=== PATIENT | female | born 1950 | race Caucasian/White ===

== ENCOUNTER 2017-03-17 08:06 | Inpatient (IN) ==
--- NOTE | 2017-03-16 19:32 | Discharge Summary ---
<Andreia Jarquin - Last Filed: 03/16/17 19:30> Date of Encounter: 03/16/17 - Discharge Diagnosis (1) Rotator cuff arthropathy Priority: Primary Status: Acute Qualifiers: Laterality: unspecified laterality Qualified Code(s): M12.819 - Other specific arthropathies, not elsewhere classified, unspecified shoulder - Discharge Medications Home Medications: OxyCODONE Immed Rel [Roxicodone 5 MG] 5 - 10 mg PO Q6HR PRN #40 tablet 03/16/17 [Rx] Atorvastatin Calcium [Lipitor] 20 mg PO DAILY 03/17/17 [History] BuPROPion [Wellbutrin] 100 mg PO TID 03/17/17 [History] DiphenhydraMINE [Benadryl] 25 mg PO HS PRN 03/17/17 [History] Enoxaparin [Lovenox] 30 mg SQ DAILY 03/17/17 [History] Gabapentin [Neurontin] 300 mg PO TID 03/17/17 [History] Insulin ASPART [Novolog] 0 unit SQ TID PRN 03/17/17 [History] Insulin DETEMIR [Levemir] 30 unit SQ HS 03/17/17 [History] Insulin DETEMIR [Levemir] 45 unit SQ QAM 03/17/17 [History] Losartan Potassium [Cozaar] 100 mg PO DAILY 03/17/17 [History] Metformin HCl [Glucophage] 1,000 mg PO BID 03/17/17 [History] Metoprolol [Lopressor] 50 mg PO BID 03/17/17 [History] Warfarin [Coumadin] 5 mg PO SUTUWETHSA 03/17/17 [History] Warfarin [Coumadin] 7.5 mg PO MOFR 03/17/17 [History] amLODIPine [Norvasc] 5 mg PO DAILY 03/17/17 [History] Allergies/Adverse Reactions: Allergies Sulfa (Sulfonamide Antibiotics) Adverse Reaction (Verified 03/17/17 08:46) See Comments Primary care physician: Harrison echeverria - Patient Status Disposition: Home, Self-Care Condition: Good - Discharge Instructions Follow Up With: Harrison echeverria [Other] - Hospital Course Hospital course: Ms. Jones is a 66 year old female - Time Spent with Patient Total time spent providing and/or coordinating discharge services: <Vito Almaguer - Last Filed: 03/18/17 06:19> Date of Encounter: 03/18/17 Time of Encounter: 06:18 - Discharge Diagnosis (1) Rotator cuff arthropathy Priority: Primary Status: Acute Qualifiers: Laterality: left Qualified Code(s): M12.812 - Other specific arthropathies , not elsewhere classified, left shoulder (2) Hypertension Priority: Secondary Status: Chronic Qualifiers: Hypertension type: unspecified secondary hypertension Qualified Code(s): I15.9 - Secondary hypertension, unspecified; I15 - Secondary hypertension (3) Hyperlipidemia Priority: Secondary Status: Chronic Qualifiers: Hyperlipidemia type: unspecified Qualified Code(s): E78.5 - Hyperlipidemia , unspecified (4) Diabetes type 2, controlled Priority: Secondary Status: Chronic Qualifiers: Diabetes mellitus complication status: without complication Diabetes mellitus terminal gauger insulin use: unspecified intermediate insulin use status Qualified Code(s): E11.9 - Type 2 diabetes mellitus without complications (5) Morbid obesity with BMI of 40.0-44.9, adult Priority: Secondary Status: Chronic (6) Vasovagal episode Priority: Primary Status: Acute Primary care physician: Harrison echeverria - Patient Status Functional capacity at discharge: independent ambulation Overall status at discharge: patient is progressing back to baseline - Hospital Course Hospital course: Ms. Jones is a 66 year old female The patient had an uneventful postoperative course. They received antibiotics and physical therapy and were discharged in stable condition. There will follow -up in the office in 2 weeks. She did have a vasovagal episode after surgery rapid response was called patient responds appropriately. Patient doing well this morning without complaints. - Time Spent with Patient Total time spent providing and/or coordinating discharge services:
[2017-03-17] MEDS ORDERED: *HR* Succinylcholine 200 MG/10 ML VIAL IVP ONE (08:10)
[2017-03-17] MEDS ORDERED: Ondansetron 4 MG/2 ML VIAL ONE (08:10)
[2017-03-17] MEDS ORDERED: *HR* FentaNYL (PF) 100 MCG/2 ML VIAL ONE (08:10)
[2017-03-17] MEDS ORDERED: *HR* Midazolam HCl 2 MG/2 ML VIAL ONE (08:10)
[2017-03-17] MEDS ORDERED: *HR* Propofol 200 MG/20 ML VIAL IVP ONE (08:10)
[2017-03-17] MEDS ORDERED: Lidocaine -MPF 2% 2 ML VIAL ONE (08:10)
[2017-03-17] MEDS ORDERED: Ringers Solution, Lactated 1,000 ML IVC SCH ×2 (08:30)
[2017-03-17] MEDS ORDERED: Famotidine 20 MG/2 ML VIAL IVP ONE (08:30)
[2017-03-17] MEDS ORDERED: CeFAZolin Pre 2,000 MG/100 ML 2,000 MG/100 ML BAG IVPB ONE (08:30)
[2017-03-17] MEDS ORDERED: Gabapentin 300 MG CAPSULE PO ONE (08:34)
--- NOTE | 2017-03-17 08:55 | Anesthesia Evaluation PreOp ---
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 HX Other Medical History: Diabetes Type II, Other (Morbid Obesity) Anesthesia History: No Prior Anesthetic Complications : No Alcohol Use: none Drug use: none Medications and Allergies OxyCODONE Immed Rel [Roxicodone 5 MG] 5 - 10 mg PO Q6HR PRN #40 tablet 03/16/17 [Rx] Atorvastatin Calcium [Lipitor] 20 mg PO DAILY 03/17/17 [History] BuPROPion [Wellbutrin] 100 mg PO TID 03/17/17 [History] DiphenhydraMINE [Benadryl] 25 mg PO HS PRN 03/17/17 [History] Enoxaparin [Lovenox] 30 mg SQ DAILY 03/17/17 [History] Gabapentin [Neurontin] 300 mg PO TID 03/17/17 [History] Insulin ASPART [Novolog] 0 unit SQ TID PRN 03/17/17 [History] Insulin DETEMIR [Levemir] 30 unit SQ HS 03/17/17 [History] Insulin DETEMIR [Levemir] 45 unit SQ QAM 03/17/17 [History] Losartan Potassium [Cozaar] 100 mg PO DAILY 03/17/17 [History] Metformin HCl [Glucophage] 1,000 mg PO BID 03/17/17 [History] Metoprolol [Lopressor] 50 mg PO BID 03/17/17 [History] Warfarin [Coumadin] 5 mg PO SUTUWETHSA 03/17/17 [History] Warfarin [Coumadin] 7.5 mg PO MOFR 03/17/17 [History] amLODIPine [Norvasc] 5 mg PO DAILY 03/17/17 [History] Allergies Sulfa (Sulfonamide Antibiotics) Adverse Reaction (Verified 03/17/17 08:46) See Comments - Meds/Allergy Pre-op Review Medications Reviewed: Yes Allergies Reviewed: Yes Beta Blockers on Current Med List: Yes (Took Metoprolol today 0600) Anesthesia Results - Labs Laboratory Tests 03/11/17 03/11/17 13:59 13:59 Hgb 11.3 L Hct 35.1 L Plt Count 269 Sodium 141 Potassium 4.7 H BUN 22 H Creatinine 0.97 - Imaging EKG: report reviewed (SR) Additional studies: Gated EF 72% from stress test Anesthesia Exam O2 Sat Height 1.68 m Height 1.68 m Height 1.68 m Weight 114.759 kg Weight 114.759 kg Weight 114.759 kg O2 Sat by Pulse Oximetry 95 O2 Sat by Pulse Oximetry 95 Vital Signs Temp Pulse Resp BP Pulse Ox 98.2 F 58 18 147/73 95 03/17/17 08:33 03/17/17 08:33 03/17/17 08:33 03/17/17 08:33 03/17/17 08:33 Height: 5'6 Weight: 253 lbs NPO (# of Hours): MN Pain Scale: 0 - HEENT Pupil (Motor): Pupils equal, EOMI Mallampati: III Denture Type: Upper: Complete Oral Opening: Less than or equal to 3 - FIELD LABORER LOC: Oriented FIELD LABORER Motor: Normal RUE, Normal LUE, Normal RLE, Normal LLE, Normal Face FIELD LABORER Sensory: Normal: RUE, LUE, RLE, LLE, Face - Cardiac Rhythm: Regular Murmur: None JVD: No Carotid Bruit: No - Pulmonary Breath Sounds: bilateral Clear Respiratory Effort: Symmetrical Anesthesia Assess/Plan ASA Score: 3 (MO HTN) Anesthetic Plan: General, Regional Monitoring Plan: Standard Monitors Recovery Plan: PACU (Discussed GA and RA, agrees to proceed)
[2017-03-17] MEDS ORDERED: *HR* HYDROmorphone (PF) 1 MG/ML SYRINGE IVP PRN ×2 (09:00→12:44)
--- NOTE | 2017-03-17 09:01 | History & Physical Report ---
Date of Encounter: 03/17/17 Time of Encounter: 09:01 24 Hour HP Update - Instructions Instructions: If the History and Physical is less than 30 days old and was completed prior to A.M. admission and or procedure and has NOT been updated on calendar day of procedure please complete this update prior to performing procedure. - Update Patient reports changes in Medical Condition: No Changes in examination, assessment, or condition: No Changes in Medication: No Preop tests/diagnostics Reviewed: Yes Surgery Remains Indicated: Yes Consent for Planned Operative Procedure(s) Verified: Yes - Pre-Operative Checklist Preoperative Checklist Indicated: No Prophylactic Antibiotic Ordered: Yes Beta Kalia Taken Yesterday (Day Prior to Surgery): No
[2017-03-17] MEDS ORDERED: Tetracaine/PF 20 MG/2 ML AMPUL ONE (09:06)
[2017-03-17] MEDS ORDERED: ROPIVACAINE HCL/PF 0.5% 30 ML VIAL ONE (09:06)
[2017-03-17] MEDS ORDERED: Bupivacaine/Clonidine Syringe 1 EACH SYRINGE ONE (09:07)
--- NOTE | 2017-03-17 10:02 | Anesthesia Procedures ---
Date of Encounter: 03/17/17 Time of Encounter: :40 Procedures: Anesthesia - Nerve Block Procedure Date: 03/17/17 Time: :40 Checklist: Correct Patient Identifier Correct side: Left Blood Thinner: No Monitor Applied: EKG, BP, Pulse Oximetry Supplemental Oxygen via Nasal Cannula (L/min): 2 Sedation: Versed (mg): 2 Sedation: Fentanyl (mcg): 1 Indication: Post Op Analgesia Pre-op Neuro Deficits: No Block Type: Supraclavicular, Other (superficial cervical plexus, ICB) Catheter placed: No Sterile Technique: Yes Ultrasound used: Yes Anatomy identified: Yes Visual spread of Local: Yes Neuro Stimulation: No Blood on Needle Aspiration: No Smooth Injection of Local: Yes Pain with Injection of Local: No Prep: Chlorhexadine Needle: 22 x 50 mm Stimuplex Local: 0.25% Bupivicaine w/Clonidine 20 mcg/cc (15 ml for SCP and 15 for ICB), Ropivacaine (0.5 30 ml wit h8 of decadron) Volume (cc): 30 Number of Attempts: 1 Complications: None/effective block Vitals: VSS
[2017-03-17] MEDS ORDERED: EPHEDrine 50 MG/ML VIAL ONE (10:13)
--- NOTE | 2017-03-17 10:51 | Orthopedic Operative Note ---
Date of procedure: 03/17/17 Pre-op diagnosis: Left shoulder cuff tear arthropathy Post-op diagnosis: same Procedure: Procedure: Left Total Shoulder Replacment Reverse, Estimated blood loss: 100 cc Hardware: Metal and polyethylene replacement: Arthrex medium glenoid baseplate , 2 4.5 screws. 1 6.5 screw, 42+4 glenosphere, 11 humeral stem, poly insert 3 Exam Under anesthesia: Full motion and no instability Procedural Notes: Grade 3 arthritic changes humeral head irreparable tear supraspinatus tendon Operative procedure: The patient was brought to the operating room and placed on the operating room table. After general anesthesia was administered the operative shoulder was examined. Findings were noted. The patient was placed in the modified beachchair position. All pressure points were padded appropriately. And the head was stabilized in the neutral position. The operative extremity was prepped and draped in the sterile surgical fashion. The patient received IV antibiotics prior to skin incision. A standard deltopectoral approach was made to the operative shoulder. Incision was made to the skin and subcutaneous tissue,hemo stasis was obtained with Bovie cautery. Using careful blunt dissection the cephalic vein was identified and mobilized medially. The deltopectoral interval was developed and the clavipectoral fascia was incised. The subscap was released off the lesser tuberosity and tagged with #2 FiberWire suture subscap was irreparable. The humerus was dislocated patient noted to have irreparable tear supraspinatus tendon, and the humeral cut was made along the anatomic neck. Patient noted to have grade 3 arthritic changes humeral head. Anterior and posterior Bankart retractors were placed to expose the glenoid. The glenoid guide was seated and the centering hole was made. It was reamed with the appropriate reamer. The medium baseplate was seated and secured with (2) 4.5 screws and one 6.5 screw. The baseplate was irrigated and dried and the 42+4 Glenosphere was seated and secured with the Gomez taper. The Gomez taper was tested and found to be secure the humerus was redislocated and prepared with the diaphyseal reamers, followed by a broaching process up to the appropriate size 11 in the patient's anatomic version. The metaphyseal reamer was then utilized. Trial reduction found the shoulder to be relocatable. Trial components were removed. The appropriate 11 stem was impacted in place in the patient's anatomic version. Trial reduction found the shoulder to be relocatable and stable with the appropriate 3 Trial component was removed and the 3 Steffany was seated and secured the shoulder was reduced. The shoulder had excellent motion and excellent stability and no evidence of dislocation. The deep tissue was irrigated with pulse irrigation. The deltopectoral interval was closed with a running #1 PDS suture, subcutaneous tissue was irrigated and closed with 0 PDS suture, the skin was closed with Dermabond. The patient was placed in a sterile dressing, abduction brace and extubated. The patient was then transferred to the recovery room in stable condition. Anesthesia: GETA Surgeon: Vito Almaguer Condition: stable Disposition: PACU
[2017-03-17] MEDS ORDERED: *HR* Atropine Sulfate 8 MG/20 ML VIAL IVP ONE (10:52)
[2017-03-17 11:38] LABS: Hematocrit 32.7 % (35.3-44.9); Hemoglobin 10.7 g/dL (11.5-15.4)
--- NOTE | 2017-03-17 12:32 | Anesthesia Evaluation Post Op ---
Date of Encounter: 03/17/17 Time of Encounter: 12:30 - Vital Signs Vital Signs: Vital Signs/O2 Sat/Glucose, Most Current Temp Pulse Resp BP Pulse Ox 03/17/17 12:21 50 16 120/64 97 03/17/17 12:11 97.2 F L 48 16 125/61 99 03/17/17 12:01 97.3 F L 56 16 126/58 99 03/17/17 11:51 54 16 114/65 97 03/17/17 11:41 56 16 114/55 92 03/17/17 11:31 97.5 F L 57 16 111/59 92 03/17/17 11:21 56 12 117/59 93 03/17/17 11:11 62 12 109/61 97 03/17/17 11:01 98.3 F 62 12 121/60 94 03/17/17 09:56 53 20 125/62 96 03/17/17 09:46 53 16 115/62 95 03/17/17 09:31 53 16 131/68 98 03/17/17 08:41 98.2 F 58 18 147/73 95 03/17/17 08:33 98.2 F 58 18 147/73 95 - Lungs Lungs: Clear Ascult./Percussion - Airway Airway: Non-obstructed - Cardiovascular Regular Rate (Liborio in 50s - [pt is B-blocked]), Baseline Rhythm - Mental Status Mental Status: Alert & Oriented, Answers Appropriately - Pain Pain Scale: 3 Pain Scale used: Numeric (1 - 10) - Nausea Vomiting Nausea Vomiting: Not Present - Hydration Hydration: Ice chips - Discharge PostOp Status: Transfer Patient to floor Anes Supervising Prov Stmt: Pt seen/evaluated, VSS and pt has met criteria for discharge to floor. - MD Manuel
[2017-03-17] MEDS ORDERED: Dextrose Gel 15 GM PO PRN ×2 (12:44)
[2017-03-17] MEDS ORDERED: Naloxone 0.4 MG/ML INJ IVP PRN (12:44)
[2017-03-17] MEDS ORDERED: MOM Conc 10 ML UD.LIQ PO PRN (12:44)
[2017-03-17] MEDS ORDERED: *HR* Dextrose 50 % in Water (Syg) 50 ML SYRINGE IVP PRN (12:44)
[2017-03-17] MEDS ORDERED: Sennosides 8.6 MG TABLET PO PRN (12:44)
[2017-03-17] MEDS ORDERED: Temazepam 15 MG CAPSULE PO PRN (12:44)
[2017-03-17] MEDS ORDERED: D5% in Water 1,000 ML IVC PRN (12:44)
[2017-03-17] MEDS: Insulin LISPRO 300 UNITS/3 ML VIAL SQ SCH ×2 (13:18→16:42)
[2017-03-17] MEDS: Ondansetron 4 MG/2 ML VIAL IVP PRN ×2 (13:18→19:30)
[2017-03-17] MEDS: Ringers Solution, Lactated 1,000 ML IVC SCH (13:18)
[2017-03-17] MEDS: *HR* OxyCODONE Immed Rel 5 MG TABLET PO PRN ×2 (13:18→17:32)
[2017-03-17] MEDS: Gabapentin 300 MG CAPSULE PO SCH ×2 (15:25→21:41)
[2017-03-17] MEDS: ceFAZolin 2,000 MG in D5% in Water 100 ML IVPB SCH (15:27)
[2017-03-17] MEDS: *HR* Metformin 500 MG TABLET PO SCH (16:42)
[2017-03-17] MEDS: *HR* Enoxaparin 30 MG/0.3 ML SYRINGE SQ SCH (17:04)
[2017-03-17] MEDS ORDERED: *HR* Warfarin 7.5 MG TABLET PO SCH (18:00)
[2017-03-17] MEDS ORDERED: *HR* Enoxaparin 30 MG/0.3 ML SYRINGE SQ SCH (18:00)
--- NOTE | 2017-03-17 19:44 | Event Note ---
Date of Encounter: 03/17/17 Time of Encounter: 07:25 Rapid response was called by family at approximately 7:25 PM. Family states that the patient got up to go the bathroom and when returning to bed became pale and had a syncopal episode. When I entered the room the patient was awake , alert and sitting on the side of the bed vomiting undigested food products. No hematemesis was noted. Vital signs were stable other than an acutely elevated blood pressure, likely related to vomiting. Patient was given a dose of Zofran and stated that her symptoms had resolved. Accu-Chek revealed a blood glucose of 107. We will make the patient nothing by mouth for the next several hours, monitor her vital signs. When I examined the patient she was awake, alert, and answering questions appropriately.
[2017-03-17] MEDS ORDERED: Insulin LISPRO 300 UNITS/3 ML VIAL SQ SCH (21:00)
[2017-03-17] MEDS ORDERED: Insulin DETEMIR 100 UNIT/ML X5UNITS SQ SCH (21:00)
[2017-03-17] MEDS ORDERED: NON-FORMULARY MEDICATION 1 EACH EACH (Insulin Detemir 30 UNIT) SQ SCH (21:00)
[2017-03-18] MEDS: ceFAZolin 2,000 MG in D5% in Water 100 ML IVPB SCH (00:29)
[2017-03-18] MEDS: Ondansetron 4 MG/2 ML VIAL IVP PRN (02:07)
[2017-03-18] MEDS: *HR* OxyCODONE Immed Rel 5 MG TABLET PO PRN ×2 (02:07→10:45)
[2017-03-18] MEDS: *HR* Enoxaparin 30 MG/0.3 ML SYRINGE SQ SCH (04:42)
[2017-03-18 04:59] LABS: Hematocrit 32.7 % (35.3-44.9); Hemoglobin 10.6 g/dL (11.5-15.4)
[2017-03-18] MEDS ORDERED: Acetaminophen IV 1,000 MG/100 ML INFUS..BTL IVPB ONE (05:32)
[2017-03-18] MEDS: Ringers Solution, Lactated 1,000 ML IVC SCH (05:40)
--- NOTE | 2017-03-18 06:20 | Orthopedics Progress Note ---
Date of Encounter: 03/18/17 Time of Encounter: 06:20 - Assessment and Plan (1) Rotator cuff arthropathy Current Visit: Yes Status: Acute Qualifiers: Laterality: left Qualified Code(s): M12.812 - Other specific arthropathies , not elsewhere classified, left shoulder (2) Hypertension Current Visit: Yes Status: Chronic Qualifiers: Hypertension type: unspecified secondary hypertension Qualified Code(s): I15.9 - Secondary hypertension, unspecified; I15 - Secondary hypertension (3) Hyperlipidemia Current Visit: Yes Status: Chronic Qualifiers: Hyperlipidemia type: unspecified Qualified Code(s): E78.5 - Hyperlipidemia , unspecified (4) Diabetes type 2, controlled Current Visit: Yes Status: Chronic Qualifiers: Diabetes mellitus complication status: without complication Diabetes mellitus retirement insulin use: 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 Vasovagal episode overnight responded appropriately. Afebrile vital signs stable. Operative extremity: Neurovascularly intact Dressing clean dry and intact Calves nontender Assessment and plan: Continue with postoperative care Hematocrit 32 discharged today stable Objective Vital signs: Vital Signs Temp Pulse Resp BP Pulse Ox 03/18/17 04:14 97.5 F L 60 18 119/67 100 03/18/17 02:00 127/62 03/17/17 22:52 97.9 F 62 17 100/62 98 03/17/17 22:00 99 03/17/17 21:00 98.1 F 57 15 113/72 99 03/17/17 19:50 98 F 48 17 218/99 98 03/17/17 16:00 97.7 F 54 14 107/67 98 03/17/17 14:58 97.9 F 50 15 138/63 96 03/17/17 13:58 97.6 F 82 13 107/58 94 03/17/17 13:29 98.2 F 55 14 121/71 96 03/17/17 13:00 97.6 F 48 16 118/58 96 03/17/17 12:31 97.2 F L 52 16 126/59 98 03/17/17 12:21 50 16 120/64 97 03/17/17 12:11 97.2 F L 48 16 125/61 99 03/17/17 12:01 97.3 F L 56 16 126/58 99 03/17/17 11:51 54 16 114/65 97 03/17/17 11:41 56 16 114/55 92 03/17/17 11:31 97.5 F L 57 16 111/59 92 03/17/17 11:21 56 12 117/59 93 03/17/17 11:11 62 12 109/61 97 03/17/17 11:01 98.3 F 62 12 121/60 94 03/17/17 09:56 53 20 125/62 96 03/17/17 09:46 53 16 115/62 95 03/17/17 09:31 53 16 131/68 98 03/17/17 08:41 98.2 F 58 18 147/73 95 03/17/17 08:33 98.2 F 58 18 147/73 95 Intake and Output 03/17/17 03/17/17 03/18/17 15:59 23:59 07:59 Intake Total 100 / 100 100 / 100 1020 / 1020 Output Total 400 / 400 300 / 300 Balance -300 / -300 100 / 100 720 / 720 Intake: IV Fluids 100 / 100 100 / 100 1000 / 1000 Lactated Ringers 1,000 ML 1000 / 1000 @ 75 mls/hr IVC .[id number] [facility] Rx#:[id number] Ancef Premix 2,000 MG/100 100 / 100 ML 2,000 mg In 100 ml @ 200 mls/hr IVPB PREOP ONE Rx#:[id number] Ancef 2,000 MG In 100 / 100 Dextrose 5% 100 ML @ 200 mls/hr IVPB Q8HR [facility] Rx#: [id number] Oral 20 / 20 Output: Urine 300 / 300 300 / 300 Estimated Blood Loss 100 / 100 Other: # Voids 1 Weight 114.759 kg Blood Glucose* 72 85 - Labs CBC & BMP: 03/18/17 04:02 Labs: Abnormal lab results Hgb 10.6 g/dL (11.5-15.4) L 03/18/17 04:02 Hct 32.7 % (35.3-44.9) L 03/18/17 04:02 - VTE Documentation of Mechanical Device: Venous foot pump, device Consult Discharge Plan - Plan Referrals: Harrison echeverria [Other]
[2017-03-18 06:55] VITALS: BP 114/71
[2017-03-18] MEDS: Insulin LISPRO 300 UNITS/3 ML VIAL SQ SCH (07:14)
[2017-03-18] MEDS: Gabapentin 300 MG CAPSULE PO SCH (08:01)
[2017-03-18] MEDS: *HR* Metformin 500 MG TABLET PO SCH (08:02)
[2017-03-18] MEDS ORDERED: NON-FORMULARY MEDICATION 1 EACH EACH (Insulin Detemir 45 UNIT) SQ SCH (09:00)
[2017-03-18] MEDS ORDERED: amLODIPine 5 MG TABLET PO SCH (09:00)
[2017-03-18] MEDS ORDERED: Insulin DETEMIR 100 UNIT/ML X5UNITS SQ SCH (09:00)
[2017-03-18] MEDS ORDERED: *HR* Warfarin 5 MG TABLET PO SCH (18:00)
== END 2017-03-18 11:20 | disposition home or self-care (01) | DRG 483 ==
LOC: SAMDAY 08:06 → 3NENU 12:34
PROVIDERS: ADMIT Orthopaedic Surgery; ATTEND Orthopaedic Surgery